=== PATIENT | female | born 1950 | race Caucasian/White ===

== ENCOUNTER 2018-07-30 16:18 | Inpatient (IN) ==
[2018-07-30] MEDS ORDERED: NS 1,000 ML IV ONE ×2 (16:40→17:53)
[2018-07-30] MEDS ORDERED: DUONEB (A & A) INH ONE (16:41)
[2018-07-30] MEDS ORDERED: TYLENOL PO ONE (16:49)
[2018-07-30 17:07] LABS: ALLEN TEST NO; BE 3.8 mmoll (-3.0-3.0); BLOOD TYPE ARTERIAL; HCO3-(ACT) 27.8 mmoll (20.0-26.0); METHB 0.8 % (0.0-1.5); O2(CT) 20.5 mL/dL (15.0-23.0); O2HB 95.5 % (95.0-99.0); PO2(98.6) 150 mmHg (60-100); SAMPLE BLOOD; SAO2 97.6 % (95.0-100.0); THB 15.1 g/dL (11.5-17.4); pH(98.6) 7.38 (7.35-7.45)
[2018-07-30 17:09] LABS: MODALITY SIMPLE MASK
[2018-07-30 17:10] LABS: PCO2(98.6) 51 mmHg (35-45)
[2018-07-30 17:11] LABS: INR 0.89; PROTIME 12.8 Seconds (11.0-16.0)
[2018-07-30 17:12] LABS: PTT 29.5 Seconds (22.3-41.8)
[2018-07-30 17:13] LABS: BASO# 0.03 X1000 (0.0-0.2); BASO% 0.2 % (0.0-0.8); HEMATOCRIT 47.2 % (37.0-47.0); IMM GRAN# 0.03 X1000 (0.0-0.04); IMM GRAN% 0.2 % (0.0-0.5); LYMPH# 0.54 X1000 (1.2-3.4); LYMPH% 3.5 % (20.5-51.1); MCH 29.1 PG (27-31); MCHC 31.8 g/dL (33-37); MCV 91.5 FL (81-99); MONO# 1.22 X1000 (0.11-0.59); MONO% 7.8 % (1.7-9.3); MPV 10.4 FL (7.4-10.4); NEUT# 13.78 X1000 (1.4-6.5); NEUT% 88.3 % (42.2-75.2); PLT 229 X1000 (130-400); RBC 5.16 XMIL (4.2-5.4); RDW 13.7 % (11.5-14.5)
[2018-07-30 17:22] LABS: AGAP 12; ALB/GLOB RATIO 1.7; ALBUMIN 4.2 g/dL (3.5-5.0); ALKALINE PHOSPHATASE 77 U/L (32-104); BUN 13 mg/dL (8-22); CALCIUM 8.5 mg/dL (8.8-10.2); CHLORIDE 94 mmol/L (98-107); CK PROFILE 25 U/L (24-173); COSMO 275; CREATININE 0.8 mg/dL (0.5-0.9); ESTIMATED GFR > 60; GLUCOSE 125 mg/dL (70-104); GOT 18 U/L (10-30); GPT 16 U/L (10-36); MAGNESIUM 1.6 mg/dL (1.5-2.7); POTASSIUM 4.5 mmol/L (3.5-5.1); SODIUM 137 mmol/L (136-145); TCO2 31 mmol/L (25-35); TOTAL BILIRUBIN 1.02 mg/dL (0.20-1.00); TOTAL PROTEIN 6.7 g/dL (6.3-8.3)
--- NOTE | 2018-07-30 17:23 | Diag Imaging Result Doc PS360 ---
EXAM: CHEST-PORTABLE HISTORY: SOB/sepsis/PN TECHNIQUE: Portable chest COMPARISON: 07/15/2018 FINDINGS: The lungs are hyperexpanded. The heart is not enlarged. The vessels are small. There are mild increased markings in the left lung base. No effusion identified. IMPRESSION: 1.Severe emphysema 2.Left basilar infiltrates Electronically signed by Ozzie Benites 07/30/2018 5:22 PM
[2018-07-30] MEDS ORDERED: LEVAQUIN 750 MG/D5W 750 MG/150 ML IVPB IV ONE (17:41)
[2018-07-30 17:48] LABS: BANDS 4 % (0-1); LYMPHS 4 % (21-51); MONO 5 % (1-9); SEGS 87 % (42-75)
[2018-07-30 19:15] LABS: URINE SOURCE CLEAN CATCH
[2018-07-30 19:22] LABS: BILIRUBIN URINE NEGATIVE (NEGATIVE); BLOOD URINE NEGATIVE (NEGATIVE); COLOR YELLOW; GLUCOSE URINE NEGATIVE (NEGATIVE); KETONE URINE TRACE mg/dL (NEGATIVE); LEUKOCYTES URINE NEGATIVE (NEGATIVE); NITRITE URINE NEGATIVE (NEGATIVE); PH URINE 6.5; PROTEIN URINE TRACE mg/dL (NEGATIVE); SP GRAVITY URINE 1.021; TURBIDITY URINE CLEAR (CLEAR); UROBILINOGEN URINE 6 mg/dL (NORMAL)
[2018-07-30 19:25] LABS: UR EPITHELIAL CELLS <10 /HPF (<10); URINE BACTERIA NEGATIVE /HPF; URINE RBC <10 /HPF (<10); URINE WBC <10 /HPF (<10)
[2018-07-30] MEDS ORDERED: ZITHROMAX 500 MG/NS 500 MG/250 ML IVPB IV ONE (19:52)
[2018-07-30] MEDS ORDERED: ZOFRAN IV ONE (20:11)
--- NOTE | 2018-07-30 21:33 | HISTORY AND PHYSICAL ---
PRIMARY CARE PHYSICIAN: Dr. Tasha Hairston. HEMMER CHAINSTITCH: Dr. Ap Mi. REASON FOR ADMISSION: Worsening shortness of breath over the last 1 week and pleuritic chest pain today. HISTORY OF PRESENT ILLNESS: Ms. Niki Jean-Baptiste is a 67-year-old lady with a past medical history of breast cancer status post lumpectomy and radiation therapy. She also has a history of COPD. She says for the last 1 month she has been "battling" a chest and upper respiratory infection. Last time she saw a physician for this was just over a week ago because she noticed that her breathing was getting progressively worse. She was given Augmentin and prednisone and states that while she was on the medication she felt better, but once she stopped the medication about 3 days ago, her symptoms have returned and gotten worse. Today she comes in with left pleuritic chest pain and decreased appetite, prompting her to seek care in our facility today. She denies any fever or chills, although when she arrived to the hospital she did have a temperature of close to 100. She has had a longstanding history of a cough productive of greenish sputum and associated postnasal drip for the last 1 month. Denies any leg swelling, PND or orthopnea. States that she has been having nausea and decreased appetite also for the last couple of days. No dysgeusia. No sore throat or swallowing problems. No GI or complaints. No focal neurological complaints. REVIEW OF SYSTEMS: Twelve systems were reviewed with no positive finding except as per HPI. ALLERGIES: None. MEDICATIONS: She is on: 1. Astelin nasal spray 2 puffs b.i.d. 2. Prempro 1 daily. 3. Ekaterina. 4. Pseudoephedrine 12-hour b.i.d. 5. Fluticasone. 6. Anoro inhaler once daily. 7. Vitamin tablet once daily. 8. Calcium carbonate with vitamin D 2 tablets daily. FAMILY HISTORY: Negative for any heart disease, diabetes or cancer in first- degree relatives. SOCIAL HISTORY: Does not smoke or use illicit drugs. Drinks a beer or two a month. . Lives with . LAB WORK: Chest film shows bilateral basilar infiltrates. White count is 15,000, hemoglobin 15.7, platelets 229, 88% neutrophils. Glucose is 125, magnesium 1.6, troponin negative. Lactate is 1.0. PTT is normal. Urinalysis is grossly normal with trace protein and trace ketones. Blood gas: pH of 7.38, pCO2 51, pO2 150. This is on a simple Ventimask. EKG was ordered but has not yet been viewed. PHYSICAL EXAMINATION: VITAL SIGNS: Blood pressure 97/45, heart rate 98, respirations 20, temperature 98 degrees. She is 98% on 3 liters. GENERAL: She is a thin, borderline emaciated, middle-aged woman who is in no obvious acute distress, alert and oriented x3. Normal mood and affect. HEENT: Head is normocephalic, atraumatic. Eyes PERRL, EOMI. She is anicteric but pale. ENT: Oropharynx exam is grossly negative for any exudates or erythema. No central cyanosis noted. NECK: Supple. No JVD, carotid bruits or thyromegaly. No lymphadenopathy. CHEST: Significantly decreased air entry in both lung haque. No wheezes or crepitations. CARDIOVASCULAR: First and second heart sounds are distant. No gallops, murmurs or rubs. Rhythm is regular. ABDOMEN: Scaphoid and soft without tenderness or megaly. Bowel sounds are normal. RECTAL: Exam not done at this time. EXTREMITIES: The patient has good distal volume pulses in all extremities. They are symmetrical and regular. No edema,clubbing or cyanosis. NEUROLOGIC: No tremors. No focal deficits. SKIN: Intact. No breakdown, lesions or erythema. MUSCULOSKELETAL: No overt joint deformities, but the patient does have moderate to severe sarcopenia. ASSESSMENT: 1. Bilateral pneumonia. 2. Chronic obstructive pulmonary disease exacerbation. 3. Chronic respiratory failure secondary to chronic obstructive pulmonary disease exacerbation. PLAN: At this time the patient has already been exposed to p.o. antibiotics with moderate improvement. We will start the patient on Levaquin, i.e., an alternative antibiotic. My only concern for this patient is that she may have a Pseudomonal infection, and thus my rationale for Levaquin, and will add on a 4th-generation cephalosporin for this reason too. Moderate dose of steroids and short-acting bronchodilators will be initiated. The patient will need to be evaluated for home O2 prior to discharge. Postnasal drip will be addressed by giving the patient adjuvant nasal sprays. The patient denies any allergy-type symptoms, however. cc: MD Tasha Arellano MD MTDD
[2018-07-30] MEDS ORDERED: PREDNISONE PO ONE (22:27)
[2018-07-30] MEDS: DUONEB (A & A) INH SCH (22:27)
[2018-07-30] MEDS ORDERED: NORCO-7.5 PO PRN (22:27)
[2018-07-30] MEDS ORDERED: ZOFRAN IV PRN (22:27)
[2018-07-30] MEDS ORDERED: TYLENOL PO PRN (22:27)
[2018-07-30] MEDS: MAXIPIME 1 GM in NS 50 ML IV SCH (23:30)
[2018-07-31] MEDS: LOVENOX SUBQ SCH ×2 (00:02→22:19)
[2018-07-31] MEDS: CULTURELLE PO SCH ×3 (00:03→22:20)
[2018-07-31] MEDS: PREDNISONE PO SCH ×2 (00:25→09:09)
[2018-07-31] MEDS: ATROVENT 0.03% NASAL SPRAY NAS SCH ×3 (00:37→22:20)
[2018-07-31] MEDS: DUONEB (A & A) INH SCH ×4 (03:35→21:05)
[2018-07-31 06:49] LABS: AGAP 11; ALB/GLOB RATIO 1.2; ALBUMIN 3.3 g/dL (3.5-5.0); ALKALINE PHOSPHATASE 61 U/L (32-104); BUN 11 mg/dL (8-22); CALCIUM 7.6 mg/dL (8.8-10.2); CHLORIDE 102 mmol/L (98-107); COSMO 280; CREATININE 0.6 mg/dL (0.5-0.9); ESTIMATED GFR > 60; GLUCOSE 125 mg/dL (70-104); GOT 15 U/L (10-30); GPT 13 U/L (10-36); POTASSIUM 4.2 mmol/L (3.5-5.1); SODIUM 140 mmol/L (136-145); TCO2 27 mmol/L (25-35); TOTAL BILIRUBIN 0.79 mg/dL (0.20-1.00)
[2018-07-31 07:00] LABS: BASO# 0.01 X1000 (0.0-0.2); BASO% 0.1 % (0.0-0.8); HEMATOCRIT 40.6 % (37.0-47.0); HEMOGLOBIN 12.6 g/dL (12.0-16.0); LYMPH# 0.23 X1000 (1.2-3.4); LYMPH% 2.1 % (20.5-51.1); MCV 93.5 FL (81-99); MONO# 0.43 X1000 (0.11-0.59); MPV 10.4 FL (7.4-10.4); NEUT# 10.15 X1000 (1.4-6.5); NEUT% 93.8 % (42.2-75.2); PLT 160 X1000 (130-400); RBC 4.34 XMIL (4.2-5.4); RDW 13.7 % (11.5-14.5); WBC 10.82 X1000 (4.8-10.8)
[2018-07-31 07:02] LABS: BANDS 20 % (0-1); LYMPHS 4 % (21-51); SEGS 74 % (42-75)
--- NOTE | 2018-07-31 07:26 | EKG Report ---
Test Performed on : 07/31/2018 06:59:19 AM Test Reason : R/O QT interval increase from meds Blood Pressure : / mmHG Vent. Rate : 096 BPM Atrial Rate : 096 BPM P-R Int : 128 ms QRS Dur : 074 ms QT Int : 364 ms P-R-T Axes : 083 039 076 degrees QTc Int : 459 ms Normal sinus rhythm. Normal ECG When compared with ECG of 14-JUL-2018 23:44, (Unconfirmed) ST no longer depressed in Anterior leads Artifact is now absent Confirmed by Jenny HOLT, Be Jain ([id number]) on 08/03/2018 7:15:53 AM
[2018-07-31] MEDS ORDERED: ULTRAM PO PRN (07:29)
--- NOTE | 2018-07-31 08:58 | Diag Imaging Result Doc PS360 ---
EXAM: CT THORAX W/O CONTRAST 07/31/2018 HISTORY: ? pneumonia TECHNIQUE: This exam was performed using automated exposure control, adjustment of mA or kV according to patient size, and/or use of iterative reconstruction technique. COMMENT: There is bullous emphysema present in both lungs particularly in the upper lung zones. There is opacification posteriorly in the left lower lobe which was not present at the time the previous study of 09/17/2012. There is a pleural-based nodule on image 104 which was present previously. There is some irregular opacity with nodularity present in the superior segment of the left lower lobe around image 73 through 75. This is somewhat worse than on the previous examination. The possibility of granulomatous disease is suggested. The largest nodule is less than 6 mm in diameter. There are some calcified atheromatous plaques in the aorta and also in the left anterior descending coronary artery. There is no evidence of significant adenopathy. There is a small amount of pleural fluid on the left. The regional skeleton is stable in appearance. IMPRESSION: Left lower lobe pneumonia. Follow-up study following clearing of the pneumonia is recommended. Electronically signed by Fortino Cisneros 07/31/2018 8:55 AM
[2018-07-31] MEDS: BROVANA NEB INH SCH ×2 (09:46→21:05)
[2018-07-31] MEDS: MAXIPIME 1 GM in NS 50 ML IV SCH ×2 (10:36→22:20)
--- NOTE | 2018-07-31 14:38 | PROGRESS NOTE ---
DATE: 07/31/2018 INTERVAL HISTORY: The patient still with some shortness of breath on minimal exertion, but overall improved from previous. Still with some largely nonproductive cough. No wheeze. One fever yesterday afternoon, but none since. Denies chills, nausea, vomiting, muscle aches, diarrhea. REVIEW OF SYSTEMS: A 12 point review of systems negative except as per interval history. LABS: WBC 10.8, hemoglobin 12.6, hematocrit 40, platelets 160,000. Glucose 125 , total protein 6, albumin 3.3. Complete metabolic panel otherwise unremarkable. Urinalysis unremarkable. IMAGING: CT chest showing left lower lobe pneumonia and severe bullous emphysema. VITALS: T-max 101.7 yesterday afternoon. No fever since. Pulse 95, respirations 18, blood pressure 102/49, O2 sat 100% on 3 L by nasal cannula. PHYSICAL EXAMINATION: General: No acute distress. Vitals: As above. HEENT: Normocephalic, atraumatic. Moist mucous membranes. No cervical adenopathy. Cardiovascular: Regular rate and rhythm. No murmurs, rubs or gallops. Pulmonary: Moderately decreased air entry throughout, but no wheezing, rales or rhonchi identified. No increased work of breathing. No accessory muscle use. Abdomen: Soft, nontender, nondistended. Bowel sounds positive. Extremities: Peripheral pulses intact. No clubbing, cyanosis or edema. Neurologic: Cranial nerves 2-12 grossly intact. No focal deficits identified. Psychiatric: Normal mood and affect. Awake, alert, oriented x 3. Skin: No new rashes or lesions identified. ASSESSMENT AND PLAN: 1. Left lower lobe pneumonia appears to be improving on Levaquin. Leukocytosis , improving. No further fever since yesterday afternoon. Blood cultures no growth to date and some symptomatic improvement. Continue Levaquin, wean oxygen as possible, and continue to monitor. 2. Chronic obstructive pulmonary disease. Some decreased air entry, but no wheezing. ABG with slightly elevated CO2, but normal pH suggesting chronic hypercapnic respiratory failure, but little to suggest significant COPD exacerbation at this time. We will continue on Duonebs as needed and prednisone for now. Can likely taper prednisone rapidly. Of note, patient's states that she follows with Dr. Mi and there has been some discussion of home O2 in the past, so she likely needs home O2 eval prior to discharge once she is somewhat improved. 3. Hyperglycemia, likely steroid-induced hyperglycemia. No significant elevations. Will monitor. 4. History of breast cancer. We will continue patient on maintenance therapy with her home letrozole. 5. DVT prophylaxis, Lovenox. [facility]
[2018-07-31] MEDS: LEVAQUIN 750 MG/D5W 750 MG/150 ML IVPB IV SCH (18:01)
[2018-07-31] MEDS ORDERED: NS 500 ML ONE (18:03)
[2018-07-31] MEDS: FEMARA PO SCH (22:21)
[2018-08-01] MEDS: DUONEB (A & A) INH SCH ×4 (03:05→19:10)
[2018-08-01 06:14] LABS: AGAP 6; BUN 12 mg/dL (8-22); CALCIUM 8.6 mg/dL (8.8-10.2); CHLORIDE 104 mmol/L (98-107); COSMO 282; CREATININE 0.7 mg/dL (0.5-0.9); ESTIMATED GFR > 60; GLUCOSE 119 mg/dL (70-104); POTASSIUM 4.1 mmol/L (3.5-5.1); SODIUM 141 mmol/L (136-145); TCO2 31 mmol/L (25-35)
[2018-08-01 06:29] LABS: BASO# 0.01 X1000 (0.0-0.2); BASO% 0.1 % (0.0-0.8); HEMATOCRIT 36.8 % (37.0-47.0); HEMOGLOBIN 11.2 g/dL (12.0-16.0); IMM GRAN# 0.02 X1000 (0.0-0.04); IMM GRAN% 0.2 % (0.0-0.5); LYMPH# 0.54 X1000 (1.2-3.4); MCH 28.6 PG (27-31); MCHC 30.4 g/dL (33-37); MCV 93.9 FL (81-99); MONO# 1.02 X1000 (0.11-0.59); MONO% 9.4 % (1.7-9.3); MPV 10.4 FL (7.4-10.4); NEUT# 9.21 X1000 (1.4-6.5); NEUT% 85.3 % (42.2-75.2); PLT 167 X1000 (130-400); RBC 3.92 XMIL (4.2-5.4); RDW 13.4 % (11.5-14.5)
[2018-08-01] MEDS ORDERED: BROVANA NEB ONE (07:31)
--- NOTE | 2018-08-01 07:36 | PULMONOLOGY CONSULTATION ---
DATE: 07/31/2018 REQUESTING PHYSICIAN: Dr. Paidlla. REASON FOR CONSULTATION: Pneumonia and respiratory failure. HISTORY OF PRESENT ILLNESS: Ms. Jean-Baptiste is a 67-year-old, white female with a prior tobacco history and severe COPD who is followed in my clinic. The patient has previously qualified for home oxygen but has refused to obtain and utilize oxygen therapy. The patient reports she developed a sinus infection around and it persisted through . She did receive some Augmentin along with steroids at an outpatient clinic. She has been reluctant to use Levaquin due to nausea. She continued to have symptoms with increased cough and purulent sputum production, and developed pleuritic chest pain with a low-grade fever. The patient presented to the emergency room. She had an oxygen saturation of 81% on arrival. She underwent a CT scan of the thorax which revealed a left lower lobe pneumonia with extensive emphysematous changes. She has been initiated on Levaquin and has had some clinical improvement. She has recently expectorated some sputum and it is in a cup on her bedside table. PAST MEDICAL HISTORY: 1. Severe COPD. Pulmonary functions on 01/06/2018 revealed an FEV1 of 0.49 L or 21% of predicted and a diffusion capacity of 32% of predicted. 2. Invasive carcinoma of the right breast, status post resection in December of this year. 3. Allergic rhinitis. SOCIAL HISTORY: Prior tobacco use but none recently. She drinks an occasional alcoholic beverage. FAMILY HISTORY: Positive for alcohol abuse, coronary artery disease, dyslipidemia, and unspecified lung conditions in her brother. REVIEW OF SYSTEMS: As noted in the HPI but is otherwise negative. PHYSICAL EXAMINATION: General: Reveals a thin white female resting comfortably and in no distress. Vital Signs: Maximum temperature during this hospitalization was 101.7 degrees. Blood pressure 130/94, heart rate 116, respiratory rate 20, oxygen saturation 99% on 3 L per nasal cannula. HEENT: Pupils are equal and reactive. Oropharynx is clear. Neck: Supple. Chest: Reveals diminished breath sounds, left base. Cardiac Examination: S1-S2. Abdomen: Soft and without hepatosplenomegaly. Extremities: Without edema. Neurologic: Cranial nerves 2-12 are grossly intact. IMPRESSION: A 67-year-old with severe chronic obstructive pulmonary disease, acute hypoxemic respiratory failure, chronic hypercapnic respiratory failure with a pCO2 in the 50s, left lower lobe pneumonia, with pleurisy. RECOMMENDATIONS: 1. Continue current antibiotics, given clinical improvement. 2. Await sputum culture results to narrow antibiotics if possible. 3. Continue bronchodilators. 4. Continue incentive spirometry. 5. Evaluate for oxygen at the time of discharge but she has been noncompliant with oxygen therapy in the past. cc: Ap Mi MD
[2018-08-01] MEDS: PREDNISONE PO SCH (08:10)
[2018-08-01] MEDS: CULTURELLE PO SCH ×2 (08:10→21:23)
[2018-08-01] MEDS: FEMARA PO SCH (08:11)
[2018-08-01] MEDS: BROVANA NEB INH SCH ×2 (09:55→19:10)
[2018-08-01] MEDS: ATROVENT 0.03% NASAL SPRAY NAS SCH (11:33)
[2018-08-01] MEDS: MAXIPIME 1 GM in NS 50 ML IV SCH (11:43)
[2018-08-01] MEDS ORDERED: EFFEXOR XR PO SCH (21:00)
[2018-08-01] MEDS: LEVAQUIN 750 MG/D5W 750 MG/150 ML IVPB IV SCH (21:22)
[2018-08-01] MEDS: LOVENOX SUBQ SCH (21:23)
[2018-08-02] MEDS: MAXIPIME 1 GM in NS 50 ML IV SCH ×2 (00:57→11:05)
[2018-08-02] MEDS: DUONEB (A & A) INH SCH ×3 (03:10→16:35)
[2018-08-02] MEDS: LOVENOX SUBQ SCH (03:40)
--- NOTE | 2018-08-02 05:10 | PROGRESS NOTE ---
DATE: 08/01/2018 SUBJECTIVE: She is breathing a bit better. OBJECTIVE: Vital Signs: Vital signs are stable. I think she is afebrile. She is still on about 3 L of oxygen. Blood pressure is 96/46, heart rate 105, respiratory rate of 15, and temperature 97.9 degrees and 93% on 3 L. Cardiovascular: Regular rate and rhythm. Pulmonary: Bilateral breath sounds. Clear to auscultation. GI: Soft, nontender, and nondistended. Bowel sounds are positive. LABORATORY DATA: White count is 10. Hemoglobin and hematocrit 11 and 36, platelets of 167,000. Basic was normal. PROBLEM LIST: 1. Chronic obstructive pulmonary disease exacerbation, acute. I think she is doing better. I am going to knock down her steroids just a hair here. Continue breathing treatments. 2. Pneumonia. She seems to be doing better. She is on cefepime and Levaquin, and white count is stabilizing. Anticipate possible discharge soon from that perspective however. 3. Hyperglycemia, but her sugars have been fairly stable. 4. Hypoxia. She may need home O2, but apparently she is qualified and has not continued with it. She has stopped smoking so that is at least a marked improvement. cc: Vikas Rao MD
[2018-08-02 06:39] LABS: BASO# 0.01 X1000 (0.0-0.2); BASO% 0.1 % (0.0-0.8); EOS# 0.05 X1000 (0.0-0.7); EOS% 0.5 % (0.0-10.0); HEMATOCRIT 36.4 % (37.0-47.0); HEMOGLOBIN 11.1 g/dL (12.0-16.0); IMM GRAN# 0.02 X1000 (0.0-0.04); IMM GRAN% 0.2 % (0.0-0.5); LYMPH# 0.89 X1000 (1.2-3.4); LYMPH% 9.4 % (20.5-51.1); MCH 29.1 PG (27-31); MCHC 30.5 g/dL (33-37); MCV 95.3 FL (81-99); MONO# 0.75 X1000 (0.11-0.59); MONO% 7.9 % (1.7-9.3); MPV 10.1 FL (7.4-10.4); NEUT# 7.74 X1000 (1.4-6.5); NEUT% 81.9 % (42.2-75.2); PLT 191 X1000 (130-400); RBC 3.82 XMIL (4.2-5.4); RDW 13.7 % (11.5-14.5); WBC 9.46 X1000 (4.8-10.8)
[2018-08-02 07:20] LABS: AGAP 8; BUN 14 mg/dL (8-22); CALCIUM 8.4 mg/dL (8.8-10.2); CHLORIDE 103 mmol/L (98-107); COSMO 285; CREATININE 0.7 mg/dL (0.5-0.9); ESTIMATED GFR > 60; GLUCOSE 88 mg/dL (70-104); SODIUM 143 mmol/L (136-145); TCO2 32 mmol/L (25-35)
--- NOTE | 2018-08-02 07:34 | PULMONOLOGY PROGRESS NOTE ---
DATE: 08/01/2018 SUBJECTIVE: The patient is awake alert and conversant. She reports her pleurisy has diminished. Sputum production also is decreasing. OBJECTIVE: The patient has been afebrile for the last 24 hours. Blood pressure 96/46, heart rate 105, respiratory rate 15, oxygen saturation 98% on 3 L per nasal cannula.HEENT: Pupils are equal and reactive. Oropharynx is clear. Neck: Supple. Chest: Reveals crackles at the left base without definite E to A changes. Cardiac: S1-S2. Abdomen: Soft. No hepatosplenomegaly. Extremities: Without edema. LABORATORIES: White blood count 10.80, hemoglobin 11.2, platelet count 167,000, chemistry sodium 141, potassium 4.1, chloride 104, bicarbonate 31, BUN 12, creatinine 0.7. IMPRESSION: A 67-year-old with severe COPD, chronic hypoxemic respiratory failure who presented with acute hypoxemic respiratory failure. She has community-acquired pneumonia and fevers. Clinically, she is improving. The patient also presented with pleurisy which is resolving. RECOMMENDATION: 1. Continue current antibiotics. 2. Continue bronchodilators. 3. Continue incentive spirometry. 4. Two-view chest x-ray tomorrow. Hopefully she will continue to improve and can be discharged in the next 24 to 48 hours. cc: Ap Mi MD
--- NOTE | 2018-08-02 07:51 | Diag Imaging Result Doc PS360 ---
CHEST-2 VIEWS - 08/02/2018 INDICATION: abnormal exam COMPARISON: 07/30/2018 FINDINGS: Stable severe COPD. Heart size and pulmonary vascularity is normal. Stable left lower lobe infiltrate. Stable small left pleural effusion. IMPRESSION: Left lower lobe infiltrate and small pleural effusion, grossly stable from prior. Severe COPD. Electronically signed by Robert Nicole 08/02/2018 7:49 AM
[2018-08-02] MEDS ORDERED: PREDNISONE PO SCH (09:00)
[2018-08-02] MEDS: ATROVENT 0.03% NASAL SPRAY NAS SCH (09:05)
[2018-08-02] MEDS: FEMARA PO SCH (09:05)
[2018-08-02] MEDS: CULTURELLE PO SCH (09:07)
[2018-08-02] MEDS: BROVANA NEB INH SCH (10:27)
[2018-08-02] MEDS ORDERED: BROVANA NEB ONE (10:32)
[2018-08-02 20:00] VITALS: BP 130/59
--- NOTE | 2018-08-02 21:46 | PROVIDER DOCUMENTATION ---
This chart was entered by Eli Gifford Scribe, acting as scribe for Juana Whitfield MD. HPI-Respiratory General - General Source: patient, family - History of Present Illness-Resp Quality of Pain: reports: aching Severity in ED: reports: moderate Onset/Duration: reports: 1 week ago Timing: reports: still present, constant Exposure: reports: unknown cause Cough Quality/Degree: reports: moderate, productive cough Episode Frequency: chronic episodes Current Respiratory Medication Therapy: Initiated see nurses note Modifying Factors: worse with: exertion Associated Symptoms: reports: cough, heart racing, hyperventilating, muscle/ bodyaches, shortness of breath Similar Symptoms Previously?: Yes Recently seen or treated by another doctor?: Yes (was seen in ed last week) <Juana Whitfield - Last Filed: 07/30/18 18:01> - General Source: patient <Fredy Hong - Last Filed: 07/30/18 20:09> - General Chief Complaint: Shortness of Breath Stated Complaint: COPD/SHORTNESS OF BREATH Time Seen by Provider: 07/30/18 16:29 Allergies/Adverse Reactions: Patient Allergies Allergy/AdvReac Type Severity Reaction Status Date / Time No Known Allergies Allergy Verified 01/08/18 05:31 Home Medications: Home Medication List Medication Instructions Recorded Confirmed Last Taken Type Azelastine 137 Mcg Nasal [place] 2 spray IGGY BID 01/02/18 07/30/18 01/08/18 03:30 History [Astelin Nasal [place]] Calcium Carb/Vitamin D3/Vit K1 2 each PO DAILY 01/02/18 07/30/18 01/07/18 History [Viactiv Soft Chew] Estrogen,Con/M-Progest Acet 1 each PO DAILY 01/02/18 07/30/18 01/07/18 History [Prempro 0.45-1.5 mg Tablet] Fexofenadine/Pse E.r. 12 Hr 1 each PO DAILY 01/02/18 07/30/18 01/07/18 History [Ekaterina-D 12 Hour] Fluticasone/Umeclidin/Vilanter 1 each IH DAILY 01/02/18 07/30/18 01/08/18 03:30 History [Trelegy Ellipta 100-62.5-25] Multivit-Min/FA/Lycopen/Lutein 1 each PO DAILY 01/02/18 07/30/18 01/07/18 History [Centrum Silver Tablet] Hydrocodone/Acetaminophen [[place] 1 each PO Q6H PRN PRN #10 tablet 01/08/1807/30 Unknown Rx 7.5-325 Tablet] Amoxicillin/Pot Clavulanate 875 mg PO Q12HR #14 tablet 07/15/18 07/30/18 Unknown Rx [Augmentin] Amoxicillin/Pot Clavulanate 875 mg PO Q12HR #20 tab 07/15/18 07/30/18 Unknown Rx [Augmentin] Brompheniramine/Pseudoephed/Dm 5 ml PO Q4-6H PRN PRN 7 Days #120 07/15/18 Unknown Rx [Bromfed Dm Cough Syrup] syrup NS Brompheniramine/Pseudoephed/Dm 5 ml PO Q4-6H PRN PRN 7 Days #120 07/15/18 Unknown Rx [Bromfed Dm Cough Syrup] syrup NS Prednisone 20 mg PO DAILY 6 Days #6 tab 07/15/18 07/30/18 Unknown Rx Prednisone 20 mg PO DAILY 6 Days #6 tab 07/15/18 07/30/18 Unknown Rx - History of Present Illness-Resp Nature of Presenting Problem: 67 yof presents to the ed with sob with hx of copd. pt is thin and ill appearing on exam had bodyaches, decreased appetite, productive cough with fatigue (Eli Gifford) 67 yof presents to the ed with sob with hx of copd. pt is thin and ill appearing on exam had bodyaches, decreased appetite, productive cough with fatigue (Juana Whitfield) Review of Systems - Adult - REVIEW OF SYSTEMS - ADULT ROS:: ROS per family Constitutional: reports: see HPI, chills, fever (101.7), fatique, weight loss Eyes: denies: blurred vision, double vision Ears, Nose, Mouth & Throat: reports: no symptoms reported Cardiovascular: denies: chest pain, palpitations Respiratory: reports: see HPI, cough, excessive sputum production, shortness of breath. denies: wheezing Gastrointestinal: reports: see HPI, poor appetite. denies: abdominal pain, diarrhea, nausea, vomiting Genitourinary: reports: no symptoms reported Musculoskeletal: reports: see HPI, muscle aches, muscle weakness Integumentary: reports: no symptoms reported Neurological: denies: dizziness/vertigo, headache/migraines Psychiatric: reports: no symptoms reported Endocrine: reports: no symptoms reported Hematologic/Lymphatic: reports: no symptoms reported Allergic/Immunologic: reports: no symptoms reported All Other Systems: Reviewed and Negative <Juana Whitfield - Last Filed: 07/30/18 18:01> - REVIEW OF SYSTEMS - ADULT Constitutional: reports: see HPI, chills <Fredy Hong - Last Filed: 07/30/18 20:09> Past History - Adult - PAST MEDICAL HISTORY-ADULT Review of Records: reports: Old Records Reviewed, Nursing Assessment Review, Medications Reviewed, Social history reviewed & non-contributory. Major Childhood Illnesses: reports: denies history Cardiovascular: reports: denies history Respiratory: reports: COPD Gastrointestinal: reports: denies history Obstetrical/Gynecological: reports: denies history Genitourinary: reports: denies history Musculoskeletal: reports: denies history Neurological: reports: denies history Endocrine/Immune: reports: denies history Other Conditions: reports: other cancer (rt breast cancer stage 1) - PRIOR SURGERIES/PROCEDURES Surgical/Procedure History: reports: none - IMMUNIZATION STATUS Childhood Immunizations: See Nurse Assessment Flu Vaccine: See Nurse Assessment - FAMILY HISTORY Family History: reviewed, not pertinent - SOCIAL HISTORY Smoking: quit greater than 1 year Substance Use: denies Alcohol Use Frequency: never Living Situation: family <Juana Whitfield - Last Filed: 07/30/18 18:01> - PAST MEDICAL HISTORY-ADULT Review of Records: reports: Nursing Assessment Review, Medications Reviewed, Social history reviewed & non-contributory. <Fredy Hong - Last Filed: 07/30/18 20:09> Physical Exam-General - PHYSICAL EXAM-ADULT Initial Vital Signs Reviewed: Yes - CONSTITUTIONAL General Appearance: alert, moderate distress, cachetic, thin. negative: appears well - EYES Eyes: PERRL/EOMI, pale conjunctivae, sunken eyes - HEAD, EARS, NOSE, MOUTH & THROAT HENMT: negative: moist mucous membranes - NECK Neck: normal inspection - RESPIRATORY Respiratory: chest non-tender, respiratory distress (81% on RA), crackles, increased rate (26) - CARDIOVASCULAR Cardiovascular: normal peripheral pulses, tachycardia (131) - CHEST (BREASTS) Chest/Breast: deferred - GASTROINTESTINAL (ABDOMEN) Abdominal Exam: normal bowel sounds, soft. negative: distended, guarding, rigid , rebound - GENITOURINARY Female Genitalia/Pelvic Exam: deferred Rectal Exam: deferred Hemoccult Exam: deferred - LYMPHATIC Lymphatic: no adenopathy - MUSCULOSKELETAL Back Exam: normal inspection Extremity: no pedal edema, no calf tenderness, pelvis stable, other (thin) - SKIN Integumentary: warm/dry, pallor. negative: normal turgor - NEUROLOGIC Neurologic: grossly normal - PSYCHIATRIC Psych/Mental Status: normal mood/affect, normal thought content, normal thought process, oriented x 3 <Juana Whitfield - Last Filed: 07/30/18 18:01> - PHYSICAL EXAM-ADULT Initial Vital Signs Reviewed: Yes - CONSTITUTIONAL General Appearance: alert <Fredy Hong - Last Filed: 07/30/18 20:09> Progress - PLAN OF CARE/RESULTS Result Diagrams: 07/30/18 16:40 07/30/18 16:40 - REASSESSMENT Reassessment #1 Time Reassessed: 16:46 Status: improving (PATIENT RESPONDED WELL TO 1L NS WITH HR NOW DOWN TO LOW 110S. RR IMPORVING WELL. CXR REVEALING INFILTRATION IN SETTING OF FEVER WHICH I WILL TREAT WAS PNA WITH LEVAQUINE 750MG IV NOW. I WILL ALSO ORDER ANOTHER 1L NS. PATIENT'S CURB-65 IS ONLY POSITIVE FOR AGE (>65). I HAVE SIGNED OUT PATIENT CARE TO MY COLLEAGEU WHO WILL CONTINUE WITH PATIENT CARE AND REEVALUTE AFTER 2ND LITER OF NS AND LEVAQUIN 750MG.) - XRAY 1 XRAY: Bilateral XRAY Study: Chest (EXAM: CHEST-PORTABLE HISTORY: SOB/sepsis/PN TECHNIQUE: Portable chest COMPARISON: 07/15/2018 FINDINGS: The lungs are hyperexpanded. The heart is not enlarged. The vessels are small. There are mild increased markings in the left lung base. No effusion identified. IMPRESSION: 1.Severe emphysema 2.Left basilar infiltrates Electronically signed by Ozzie Benites 07/30/2018 5:22 PM 07/30/18 1722 Interpreting Physician: Ozzie Benites MD Dictated Date/Time: 07/30/18 1261 cc: Juana Whitfield MD; LEWIS THOA) - CHANGE OF SHIFT REPORT (ED Provider) Report Given and Care Transferred to:: Rafael Hong Time of Transfer: 18:02 Items Pending: Other <Juana Whitfield - Last Filed: 07/30/18 18:01> - PLAN OF CARE/RESULTS Result Diagrams: 07/30/18 16:40 07/30/18 16:40 - CONSULTS/PCP/HOSPITALIST Notification #1 *Consult/PCP/Hospitalist*: Dr. Grimes Time Discussed: 20:09 Reason/Comments: Admission Consult Disposition: Will see in ED, Admit - CHANGE OF SHIFT REPORT (ED Provider) Report Given and Care Transferred to:: SANDY Burdick <Fredy Hong - Last Filed: 07/30/18 20:09> - PLAN OF CARE/RESULTS Progress/Plan/Lab Results: Vital Signs - 8 hr 07/30/18 16:22 07/30/18 16:38 07/30/18 16:40 Temperature 101.7 F H Pulse Rate 131 H 123 H 120 H Respiratory Rate 26 H 28 H 23 Blood Pressure 124/64 122/83 O2 Sat by Pulse Oximetry 81 L 97 97 07/30/18 16:50 07/30/18 17:00 07/30/18 17:05 Temperature Pulse Rate 120 H 113 H 123 H Respiratory Rate 25 H 24 33 H Blood Pressure 129/48 O2 Sat by Pulse Oximetry 97 97 99 07/30/18 17:10 07/30/18 17:20 07/30/18 17:30 Temperature Pulse Rate 119 H 114 H 110 H Respiratory Rate 25 H 26 H 24 Blood Pressure O2 Sat by Pulse Oximetry 98 100 100 07/30/18 17:40 07/30/18 17:50 07/30/18 18:00 Temperature Pulse Rate 108 H 113 H 109 H Respiratory Rate 25 H 24 23 Blood Pressure O2 Sat by Pulse Oximetry 98 95 92 L 07/30/18 18:02 07/30/18 18:10 07/30/18 18:20 Temperature Pulse Rate 112 H 108 H 112 H Respiratory Rate 30 H 13 15 Blood Pressure 106/60 O2 Sat by Pulse Oximetry 91 L 93 L 89 L 07/30/18 18:30 07/30/18 18:32 07/30/18 18:40 Temperature 98.0 F Pulse Rate 109 H 106 H 112 H Respiratory Rate 23 24 18 Blood Pressure 106/60 92/67 O2 Sat by Pulse Oximetry 95 96 97 07/30/18 18:50 07/30/18 19:00 07/30/18 19:02 Temperature Pulse Rate 108 H 110 H 109 H Respiratory Rate 22 23 24 Blood Pressure 95/40 O2 Sat by Pulse Oximetry 98 98 98 07/30/18 19:11 07/30/18 19:20 07/30/18 19:30 Temperature Pulse Rate 110 H 109 H 103 H Respiratory Rate 22 22 18 Blood Pressure O2 Sat by Pulse Oximetry 92 L 97 98 07/30/18 19:40 07/30/18 19:50 07/30/18 19:54 Temperature Pulse Rate 102 H 100 H 98 H Respiratory Rate 18 20 20 Blood Pressure 97/45 O2 Sat by Pulse Oximetry 98 98 99 07/30/18 20:00 Temperature Pulse Rate 97 H Respiratory Rate 20 Blood Pressure O2 Sat by Pulse Oximetry 99 07/30/18 17:43 Influenza Screen - Final Nasopharyngeal Laboratory Results - last 24 hr 07/30/18 07/30/18 07/30/18 16:40 16:40 16:40 WBC 15.60 H RBC 5.16 Hgb 15.0 Hct 47.2 H MCV 91.5 MCH 29.1 MCHC 31.8 L RDW Std Deviation 13.7 Plt Count 229 MPV 10.4 Immature Gran % (Auto) 0.2 Neut % (Auto) 88.3 H Lymph % (Auto) 3.5 L [place] % (Auto) 7.8 Eos % (Auto) 0.0 Baso % (Auto) 0.2 Immature Gran # (Auto) 0.03 Neut # (Auto) 13.78 H Lymph # (Auto) 0.54 L [place] # (Auto) 1.22 H Eos # (Auto) 0.00 Baso # (Auto) 0.03 Segmented Neutrophils 87 H Band Neutrophils 4 H Lymphocytes 4 L Monocytes 5 PT 12.8 INR 0.89 PTT (Actin FS) 29.5 Specimen Type Sample Site pH pCO2 pO2 HCO3 Base Excess Oxyhemoglobin ABG O2 Sat (Calculated) ABG O2 Saturation ABG Carboxyhemoglobin ABG Methemoglobin Hal Test A-a O2 Difference Total Hemoglobin Lactate Liter Flow Blood Gas Modality FiO2 % Sodium 137 Potassium 4.5 Chloride 94 L Carbon Dioxide 31 Anion Gap 12 BUN 13 Creatinine 0.8 Estimated GFR/1.73 m2 > 60 BUN/Creatinine Ratio 16 Glucose 125 H Calculated Osmolality 275 Calcium 8.5 L Magnesium 1.6 Total Bilirubin 1.02 H AST 18 ALT 16 Alkaline Phosphatase 77 Creatine Kinase 25 Troponin T Total Protein 6.7 Albumin 4.2 Globulin 2.5 Albumin/Globulin Ratio 1.7 Plasma Lactate Urine Source Urine Color Urine Turbidity Urine pH Ur Specific [place] Urine Protein Ur Glucose (Stick) Ur Ketones (Stick) Urine Blood Urine Nitrite Urine Bilirubin Urobilinogen Dipstick Urine Leukocytes Urine WBC (Auto) Urine RBC (Auto) U Epithel Cells (Auto) Urine Bacteria (Auto) 07/30/18 07/30/18 07/30/18 16:40 16:40 17:00 WBC RBC Hgb Hct MCV MCH MCHC RDW Std Deviation Plt Count MPV Immature Gran % (Auto) Neut % (Auto) Lymph % (Auto) [place] % (Auto) Eos % (Auto) Baso % (Auto) Immature Gran # (Auto) Neut # (Auto) Lymph # (Auto) [place] # (Auto) Eos # (Auto) Baso # (Auto) Segmented Neutrophils Band Neutrophils Lymphocytes Monocytes PT INR PTT (Actin FS) Specimen Type ARTERIAL Sample Site R BRACHIAL pH 7.38 pCO2 51 H* pO2 150 H HCO3 27.8 H Base Excess 3.8 H Oxyhemoglobin 95.5 ABG O2 Sat (Calculated) 20.5 ABG O2 Saturation 97.6 ABG Carboxyhemoglobin 1.40 ABG Methemoglobin 0.8 Hal Test NO A-a O2 Difference 71.0 Total Hemoglobin 15.1 Lactate 0.80 Liter Flow 6.0 Blood Gas Modality SIMPLE MASK FiO2 % 40.0 Sodium Potassium Chloride Carbon Dioxide Anion Gap BUN Creatinine Estimated GFR/1.73 m2 BUN/Creatinine Ratio Glucose Calculated Osmolality Calcium Magnesium Total Bilirubin AST ALT Alkaline Phosphatase Creatine Kinase Troponin T < 0.010 Total Protein Albumin Globulin Albumin/Globulin Ratio Plasma Lactate 1.1 Urine Source Urine Color Urine Turbidity Urine pH Ur Specific [place] Urine Protein Ur Glucose (Stick) Ur Ketones (Stick) Urine Blood Urine Nitrite Urine Bilirubin Urobilinogen Dipstick Urine Leukocytes Urine WBC (Auto) Urine RBC (Auto) U Epithel Cells (Auto) Urine Bacteria (Auto) 07/30/18 18:06 WBC RBC Hgb Hct MCV MCH MCHC RDW Std Deviation Plt Count MPV Immature Gran % (Auto) Neut % (Auto) Lymph % (Auto) [place] % (Auto) Eos % (Auto) Baso % (Auto) Immature Gran # (Auto) Neut # (Auto) Lymph # (Auto) [place] # (Auto) Eos # (Auto) Baso # (Auto) Segmented Neutrophils Band Neutrophils Lymphocytes Monocytes PT INR PTT (Actin FS) Specimen Type Sample Site pH pCO2 pO2 HCO3 Base Excess Oxyhemoglobin ABG O2 Sat (Calculated) ABG O2 Saturation ABG Carboxyhemoglobin ABG Methemoglobin Hal Test A-a O2 Difference Total Hemoglobin Lactate Liter Flow Blood Gas Modality FiO2 % Sodium Potassium Chloride Carbon Dioxide Anion Gap BUN Creatinine Estimated GFR/1.73 m2 BUN/Creatinine Ratio Glucose Calculated Osmolality Calcium Magnesium Total Bilirubin AST ALT Alkaline Phosphatase Creatine Kinase Troponin T Total Protein Albumin Globulin Albumin/Globulin Ratio Plasma Lactate Urine Source CLEAN CATCH Urine Color YELLOW Urine Turbidity CLEAR Urine pH 6.5 Ur Specific [place] 1.021 Urine Protein TRACE A Ur Glucose (Stick) NEGATIVE Ur Ketones (Stick) TRACE A Urine Blood NEGATIVE Urine Nitrite NEGATIVE Urine Bilirubin NEGATIVE Urobilinogen Dipstick 6 A Urine Leukocytes NEGATIVE Urine WBC (Auto) <10 Urine RBC (Auto) <10 U Epithel Cells (Auto) <10 Urine Bacteria (Auto) NEGATIVE Orders Category Date Time Status Cardiac Monitoring DIRECTED Care 07/30/18 16:27 Active Cardiac Monitoring DIRECTED Care 07/30/18 16:38 Inactive IV Insertion ORDERED Care 07/30/18 16:27 Completed IV Insertion ORDERED Care 07/30/18 16:38 Inactive Notify MD of + Sepsis Screen NOW Care 07/30/18 16:27 Active Notify MD of + Sepsis Screen NOW Care 07/30/18 16:38 Inactive Notify Physician As Ordered Care 07/30/18 16:27 Active Notify Physician As Ordered Care 07/30/18 16:38 Inactive CHEST-PORTABLE [RAD] Stat Exams 07/30/18 16:44 Completed ABG [RESP] Routine Lab 07/30/18 17:00 Completed BLOOD CULTURE [BLDCUL] Stat Lab 07/30/18 16:40 Results CBC WITH DIFF [HEME] Stat Lab 07/30/18 16:40 Completed CK PROFILE [SP CHEM] Stat Lab 07/30/18 16:40 Completed COMPREHENSIVE METABOLIC PANEL [CHEM] Stat Lab 07/30/18 16:40 Completed INFLUENZA SCREEN A/B Stat Lab 07/30/18 17:43 Completed LACTATE, PLASMA [CHEM] Lab 07/30/18 19:42 Received LACTATE, PLASMA [CHEM] Lab 07/30/18 22:30 Uncollected LACTATE, PLASMA [CHEM] Q3H Lab 07/30/18 16:40 Completed MAGNESIUM [CHEM] Stat Lab 07/30/18 16:40 Completed PROTIME WITH INR [COAG] Stat Lab 07/30/18 16:40 Completed PTT [COAG] Stat Lab 07/30/18 16:40 Completed TROPONIN T Stat Lab 07/30/18 16:40 Completed URINALYSIS W/POSS RFLX CULT [URINALYSIS] Stat Lab 07/30/18 18:06 Completed 0.9% Sodium Chloride Inj [Ns] 1,000 ml Med 07/30/18 16:40 Discontinued IV 999 mls/hr 0.9% Sodium Chloride Inj [Ns] 1,000 ml Med 07/30/18 17:53 Discontinued IV 999 mls/hr Acetaminophen [Tylenol] Med 07/30/18 16:49 Discontinued 650 mg PO NOW ONE Albuterol 2.5MG/Ipratrop 0.5MG [Duoneb (A & A)] Med 07/30/18 16:41 Discontinued 3 ml INH NOW ONE Azithromycin 500 mg/Ns [Zithromax 500 mg/Ns] Med 07/30/18 19:52 Stop Req 500 mg in 250 ml IV NOW Levofloxacin 750 mg/D5w [Levaquin 750 mg/D5w] Med 07/30/18 17:41 Discontinued 750 mg in 150 ml IV NOW Aerosol Treatments Stat Oth 07/30/18 16:41 Completed Oxygen Device Stat Oth 07/30/18 16:27 Completed EKG [EKG] Stat Ther 07/30/18 16:39 Ordered Laboratory Tests 07/30/18 07/30/18 07/30/18 16:40 16:40 16:40 WBC 15.60 H RBC 5.16 Hgb 15.0 Hct 47.2 H MCV 91.5 MCH 29.1 MCHC 31.8 L RDW Std Deviation 13.7 Plt Count 229 MPV 10.4 Immature Gran % (Auto) 0.2 Neut % (Auto) 88.3 H Lymph % (Auto) 3.5 L [place] % (Auto) 7.8 Eos % (Auto) 0.0 Baso % (Auto) 0.2 Immature Gran # (Auto) 0.03 Neut # (Auto) 13.78 H Lymph # (Auto) 0.54 L [place] # (Auto) 1.22 H Eos # (Auto) 0.00 Baso # (Auto) 0.03 Segmented Neutrophils 87 H Band Neutrophils 4 H Lymphocytes 4 L Monocytes 5 PT 12.8 INR 0.89 PTT (Actin FS) 29.5 Specimen Type Sample Site pH pCO2 pO2 HCO3 Base Excess Oxyhemoglobin ABG O2 Sat (Calculated) ABG O2 Saturation ABG Carboxyhemoglobin ABG Methemoglobin Hal Test A-a O2 Difference Total Hemoglobin Lactate Liter Flow Blood Gas Modality FiO2 % Sodium 137 Potassium 4.5 Chloride 94 L Carbon Dioxide 31 Anion Gap 12 BUN 13 Creatinine 0.8 Estimated GFR/1.73 m2 > 60 BUN/Creatinine Ratio 16 Glucose 125 H Calculated Osmolality 275 Calcium 8.5 L Magnesium 1.6 Total Bilirubin 1.02 H AST 18 ALT 16 Alkaline Phosphatase 77 Creatine Kinase 25 Troponin T Total Protein 6.7 Albumin 4.2 Globulin 2.5 Albumin/Globulin Ratio 1.7 Plasma Lactate Urine Source Urine Color Urine Turbidity Urine pH Ur Specific [place] Urine Protein Ur Glucose (Stick) Ur Ketones (Stick) Urine Blood Urine Nitrite Urine Bilirubin Urobilinogen Dipstick Urine Leukocytes Urine WBC (Auto) Urine RBC (Auto) U Epithel Cells (Auto) Urine Bacteria (Auto) 07/30/18 07/30/18 07/30/18 16:40 16:40 17:00 WBC RBC Hgb Hct MCV MCH MCHC RDW Std Deviation Plt Count MPV Immature Gran % (Auto) Neut % (Auto) Lymph % (Auto) [place] % (Auto) Eos % (Auto) Baso % (Auto) Immature Gran # (Auto) Neut # (Auto) Lymph # (Auto) [place] # (Auto) Eos # (Auto) Baso # (Auto) Segmented Neutrophils Band Neutrophils Lymphocytes Monocytes PT INR PTT (Actin FS) Specimen Type ARTERIAL Sample Site R BRACHIAL pH 7.38 pCO2 51 H* pO2 150 H HCO3 27.8 H Base Excess 3.8 H Oxyhemoglobin 95.5 ABG O2 Sat (Calculated) 20.5 ABG O2 Saturation 97.6 ABG Carboxyhemoglobin 1.40 ABG Methemoglobin 0.8 Hal Test NO A-a O2 Difference 71.0 Total Hemoglobin 15.1 Lactate 0.80 Liter Flow 6.0 Blood Gas Modality SIMPLE MASK FiO2 % 40.0 Sodium Potassium Chloride Carbon Dioxide Anion Gap BUN Creatinine Estimated GFR/1.73 m2 BUN/Creatinine Ratio Glucose Calculated Osmolality Calcium Magnesium Total Bilirubin AST ALT Alkaline Phosphatase Creatine Kinase Troponin T < 0.010 Total Protein Albumin Globulin Albumin/Globulin Ratio Plasma Lactate 1.1 Urine Source Urine Color Urine Turbidity Urine pH Ur Specific [place] Urine Protein Ur Glucose (Stick) Ur Ketones (Stick) Urine Blood Urine Nitrite Urine Bilirubin Urobilinogen Dipstick Urine Leukocytes Urine WBC (Auto) Urine RBC (Auto) U Epithel Cells (Auto) Urine Bacteria (Auto) 07/30/18 18:06 WBC RBC Hgb Hct MCV MCH MCHC RDW Std Deviation Plt Count MPV Immature Gran % (Auto) Neut % (Auto) Lymph % (Auto) [place] % (Auto) Eos % (Auto) Baso % (Auto) Immature Gran # (Auto) Neut # (Auto) Lymph # (Auto) [place] # (Auto) Eos # (Auto) Baso # (Auto) Segmented Neutrophils Band Neutrophils Lymphocytes Monocytes PT INR PTT (Actin FS) Specimen Type Sample Site pH pCO2 pO2 HCO3 Base Excess Oxyhemoglobin ABG O2 Sat (Calculated) ABG O2 Saturation ABG Carboxyhemoglobin ABG Methemoglobin Hal Test A-a O2 Difference Total Hemoglobin Lactate Liter Flow Blood Gas Modality FiO2 % Sodium Potassium Chloride Carbon Dioxide Anion Gap BUN Creatinine Estimated GFR/1.73 m2 BUN/Creatinine Ratio Glucose Calculated Osmolality Calcium Magnesium Total Bilirubin AST ALT Alkaline Phosphatase Creatine Kinase Troponin T Total Protein Albumin Globulin Albumin/Globulin Ratio Plasma Lactate Urine Source CLEAN CATCH Urine Color YELLOW Urine Turbidity CLEAR Urine pH 6.5 Ur Specific [place] 1.021 Urine Protein TRACE A Ur Glucose (Stick) NEGATIVE Ur Ketones (Stick) TRACE A Urine Blood NEGATIVE Urine Nitrite NEGATIVE Urine Bilirubin NEGATIVE Urobilinogen Dipstick 6 A Urine Leukocytes NEGATIVE Urine WBC (Auto) <10 Urine RBC (Auto) <10 U Epithel Cells (Auto) <10 Urine Bacteria (Auto) NEGATIVE Discussed results and plan of care with patient. Patient agrees with plan and verbalizes understanding. (Fredy Hong) Departure - Critical Care Note This patient required my direct & personal management of CC.: Yes Total Time (mins): 48 Critical Care Statement: This patient required my direct personal management to treat or rule out processes, the absence of which, could potentiallly result in sudden, clinically significant life or limb threatening deterioration. <Juana Whitfield - Last Filed: 07/30/18 18:01> - Departure Date of Disposition Decision: 07/30/18 Time of Disposition Decision: 19:51 Certified Medical Emergency: Emergent <Fredy Hong - Last Filed: 07/30/18 20:09> - Departure DIAGNOSIS: Hypoxia, Elevated bilirubin CAP (community acquired pneumonia) Qualifiers: Laterality: unspecified laterality Qualified Code(s): J18.9 - Pneumonia, unspecified organism Disposition: ADMITTED INPATIENT 09 Condition: Stable Referrals and Follow-Ups: LEWIS THAO [Primary Care Provider] - Attestation - Physician/ MARIANA Attestation Patient care was provided by Advanced Practice Provider:: No The physician spent face to face time with patient:: Yes Advanced Practice Provider documentation review:: Supervising physician onsite and consulted in the evaluation and care of this patient. The physician did have a face to face encounter with the patient. <Juana Whitfield - Last Filed: 07/30/18 18:01> - Physician/ MARIANA Attestation Patient care was provided by Advanced Practice Provider:: No The physician spent face to face time with patient:: Yes Advanced Practice Provider documentation review:: Supervising physician onsite and consulted in the evaluation and care of this patient. The physician did have a face to face encounter with the patient. - Physician/ MARIANA Attestation #2 Shift Change Time: 18:00 Patient care was provided by Advanced Practice Provider:: Yes Advanced Practice Provider:: Fredy Hong The physician spent face to face time with patient:: Yes Advanced Practice Provider documentation review:: Supervising physician onsite and consulted in the evaluation and care of this patient. The physician did have a face to face encounter with the patient. <Fredy Hong - Last Filed: 07/30/18 20:09> This chart was documented by the indicated scribe, (Eli Gifford Scribe) and accurately reflects the services I performed and decisions made by , Juana Whitfield MD, as attested by the provider's signature.
--- NOTE | 2018-08-03 15:19 | DISCHARGE SUMMARY ---
ADMISSION DATE: 07/30/2018 DISCHARGE DATE: 08/02/2018 DISCHARGE DIAGNOSIS: 1. Chronic obstructive pulmonary disease exacerbation, acute. 2. Pneumonia which was felt to be left lower lobe. 3. Hyperglycemia at least on initial evaluation. He seems pretty stable now, possibly steroid induced. 4. Hypoxic respiratory failure which may have a chronic component. CONSULTATIONS: Dr. Mi. Briefly this is a 67-year-old female with COPD, breast cancer, who comes in with shortness of breath. She had been on Augmentin and prednisone but then started to suddenly worsen. She was placed on Levaquin and cefepime for possible Pseudomonas. Clinically she improved. Dr. Mi consulted recommended continuing her current antibiotics. There was question of sputum culture results but we did get a sputum on her but clinically she continued to improve. Her chest x-ray was stable on the . It did not look like there was she had a little bit of left lower lobe infiltrate but nothing too extensive so I think she was stable for discharge. Follow up with her PCP and Dr. Mi. I am going to discharge her on Levaquin for another 10 days and a Medrol Dosepak and give her breathing treatments which I think she has but will see how she does and follow up with Dr. Mi and her PCP who is Dr. Tasha Hutchison. A 32 minute discharge. Now she did qualify for home oxygen so we are going to try to set that up prior to discharge. cc: Vikas Rao MD
== END 2018-08-02 20:30 | disposition home or self-care (01) | DRG 871 ==
LOC: ED 16:18 → 4N 21:53 → SUATTDRO 21:53
PROVIDERS: ATTEND Internal Medicine
CPT/HCPCS: 71010; 71020; 71045; 71046; 71250; 80048; 80053; 81001; 82550; 82805; 83605; 83735; 84484; 85025; 85610; 85730; 87040; 87275; 87276; 87804; 93005; 93010; 94640; 94761; 94799; 96361; 96365; 96366; 96375; 99285; 99291; A9270; J0692; J1650; J1956; J2405; J7030; J7040; J7506; J7512

== ENCOUNTER 2018-11-14 11:17 | Inpatient (IN) ==
[2018-11-14] MEDS ORDERED: SOLU-MEDROL IV ONE (12:28)
[2018-11-14] MEDS ORDERED: DUONEB (A & A) INH ONE (12:28)
[2018-11-14 12:43] LABS: BASO# 0.03 X1000 (0.0-0.2); BASO% 0.3 % (0.0-0.8); EOS# 0.06 X1000 (0.0-0.7); EOS% 0.6 % (0.0-10.0); HEMATOCRIT 42.4 % (37.0-47.0); HEMOGLOBIN 13.1 g/dL (12.0-16.0); IMM GRAN# 0.02 X1000 (0.0-0.04); IMM GRAN% 0.2 % (0.0-0.5); LYMPH# 0.82 X1000 (1.2-3.4); LYMPH% 7.6 % (20.5-51.1); MCH 28.7 PG (27-31); MCHC 30.9 g/dL (33-37); MONO# 1.25 X1000 (0.11-0.59); MONO% 11.6 % (1.7-9.3); MPV 10.7 FL (7.4-10.4); NEUT# 8.58 X1000 (1.4-6.5); NEUT% 79.7 % (42.2-75.2); PLT 188 X1000 (130-400); RBC 4.56 XMIL (4.2-5.4); RDW 12.7 % (11.5-14.5); WBC 10.76 X1000 (4.8-10.8)
[2018-11-14 12:53] LABS: INR 0.86; PROTIME 12.4 Seconds (11.0-16.0)
[2018-11-14 13:05] LABS: AGAP 8; ALB/GLOB RATIO 1.9; ALBUMIN 4.3 g/dL (3.5-5.0); ALKALINE PHOSPHATASE 76 U/L (32-104); BUN 16 mg/dL (8-22); CALCIUM 9.1 mg/dL (8.8-10.2); CHLORIDE 96 mmol/L (98-107); COSMO 279; CREATININE 0.6 mg/dL (0.5-0.9); ESTIMATED GFR > 60; GLUCOSE 104 mg/dL (70-104); GOT 20 U/L (10-30); GPT 15 U/L (10-36); POTASSIUM 4.3 mmol/L (3.5-5.1); SODIUM 139 mmol/L (136-145); TCO2 35 mmol/L (25-35); TOTAL BILIRUBIN 0.54 mg/dL (0.20-1.00); TOTAL PROTEIN 6.6 g/dL (6.3-8.3)
--- NOTE | 2018-11-14 13:07 | Diag Imaging Result Doc PS360 ---
EXAM: CHEST-2 VIEWS 11/14/2018 HISTORY: short of breath TECHNIQUE: PA and lateral chest COMMENT: There is COPD. The heart size and pulmonary vascularity are within normal limits. There is volume loss and ill-defined opacity present in the right middle lobe. This is somewhat improved since 08/23/2018. IMPRESSION: COPD and right middle lobe pneumonia. Advise follow-up until clear. Electronically signed by Fortino Cisneros 11/14/2018 1:05 PM
[2018-11-14] MEDS ORDERED: ZITHROMAX 500 MG/NS 500 MG/250 ML IVPB IV ONE (13:41)
[2018-11-14] MEDS ORDERED: ROCEPHIN 2 GM in NS 50 ML IV ONE (13:41)
--- NOTE | 2018-11-14 14:31 | PROVIDER DOCUMENTATION ---
This chart was entered by Eli Gifford Scribe, acting as scribe for Nasir Linton MD. HPI-Respiratory General - General Chief Complaint: Shortness of Breath Stated Complaint: CANT BREATHE Time Seen by Provider: 11/14/18 12:23 Source: patient, family () Allergies/Adverse Reactions: Patient Allergies Allergy/AdvReac Type Severity Reaction Status Date / Time No Known Allergies Allergy Verified 01/08/18 05:31 Home Medications: Home Medication List Medication Instructions Recorded Confirmed Last Taken Type Azelastine 137 Mcg Nasal Daphne 2 spray IGGY BID 01/02/18 07/30/18 01/08/18 03:30 History [Astelin Nasal Daphne] Calcium Carb/Vitamin D3/Vit K1 2 each PO DAILY 01/02/18 07/30/18 01/07/18 History [Viactiv Soft Chew] Fexofenadine/Pse E.r. 12 Hr 1 each PO DAILY 01/02/18 07/30/18 01/07/18 History [Ekaterina-D 12 Hour] Fluticasone/Umeclidin/Vilanter 1 each IH DAILY 01/02/18 07/30/18 01/08/18 03:30 History [Trelegy Ellipta 100-62.5-25] Letrozole [Femara] 2.5 mg PO QHS 07/31/18 07/31/18 07/29/18 20:00 History Venlafaxine E.r. [Effexor Xr] 37.5 mg PO QHS 07/31/18 07/31/18 07/29/18 20:00 History Albuterol 2.5MG/Ipratrop 0.5MG 3 ml INH RTQ6H #120 neb 08/02/18 Unknown Rx [Duoneb] CefDINIR [Omnicef] 300 mg PO BID #14 capsule 08/02/18 Unknown Rx Prednisone See Taper PO DAILY #30 tab 08/02/18 Unknown Rx - History of Present Illness-Resp Nature of Presenting Problem: 67 yowf presents to the ed with c/o sob and excessive sputum production with cough. pt sts onset was last night and has became worse this am. pt has COPD and has been using home O2 since onset of sx. pt had recent URI Quality of Pain: reports: none Severity in ED: reports: mild Onset/Duration: reports: last night Timing: reports: still present, getting worse Context: reports: recent URI Cough Quality/Degree: reports: moderate, productive cough, sputum Episode Frequency: frequent episodes Current Respiratory Medication Therapy: Initiated see nurses note Modifying Factors: worse with: exertion, coughing Associated Symptoms: reports: cough, shortness of breath. denies: chest pain/soreness, dizziness, fever/chills, wheezing Similar Symptoms Previously?: Yes (copd) Recently seen or treated by another doctor?: No Review of Systems - Adult - REVIEW OF SYSTEMS - ADULT Constitutional: denies: chills, fever Eyes: reports: no symptoms reported Ears, Nose, Mouth & Throat: reports: no symptoms reported Cardiovascular: denies: chest pain, palpitations Respiratory: reports: see HPI, chronic cough, dyspnea on exertion, excessive sputum production, shortness of breath Gastrointestinal: denies: abdominal pain, diarrhea, nausea, vomiting Genitourinary: reports: no symptoms reported Musculoskeletal: denies: back pain, neck pain Integumentary: reports: no symptoms reported Neurological: reports: no symptoms reported Psychiatric: reports: no symptoms reported Endocrine: reports: no symptoms reported Hematologic/Lymphatic: reports: no symptoms reported Allergic/Immunologic: reports: no symptoms reported All Other Systems: Reviewed and Negative Past History - Adult - PAST MEDICAL HISTORY-ADULT Review of Records: reports: Nursing Assessment Review, Medications Reviewed Major Childhood Illnesses: reports: denies history Cardiovascular: reports: denies history Respiratory: reports: COPD Gastrointestinal: reports: denies history Obstetrical/Gynecological: reports: denies history Genitourinary: reports: denies history Musculoskeletal: reports: denies history Hand Dominance: Right Handed Neurological: reports: denies history Psychiatric: reports: denies history Endocrine/Immune: reports: denies history Other Conditions: reports: other cancer (rt breast cancer stage 1) - PRIOR SURGERIES/PROCEDURES Surgical/Procedure History: reports: reviewed, not pertinent - IMMUNIZATION STATUS Childhood Immunizations: See Nurse Assessment Flu Vaccine: See Nurse Assessment - FAMILY HISTORY Family History: reviewed, not pertinent - SOCIAL HISTORY Smoking: quit greater than 1 year Substance Use: denies Living Situation: family Physical Exam-General - PHYSICAL EXAM-ADULT Initial Vital Signs Reviewed: Yes - CONSTITUTIONAL General Appearance: alert, mild distress - EYES Eyes: PERRL/EOMI, pink conjunctivae - HEAD, EARS, NOSE, MOUTH & THROAT HENMT: moist mucous membranes, normal ENT inspection - NECK Neck: full range of motion, supple, normal inspection - RESPIRATORY Respiratory: chest non-tender, respiratory distress (mild), rhonchi (diffuse), increased rate (24) - CARDIOVASCULAR Cardiovascular: normal peripheral pulses, regular rate, rhythm - GASTROINTESTINAL (ABDOMEN) Abdominal Exam: normal bowel sounds, non tender, soft - LYMPHATIC Lymphatic: no adenopathy - MUSCULOSKELETAL Back Exam: normal inspection, no CVA tenderness, no vertebral tenderness Extremity: normal range of motion, non-tender, normal gait, normal inspection, no pedal edema, no calf tenderness, pelvis stable - SKIN Integumentary: normal turgor, warm/dry, pallor - NEUROLOGIC Neurologic: grossly normal, no motor/sensory deficits - PSYCHIATRIC Psych/Mental Status: normal mood/affect, normal thought content, normal thought process, oriented x 3 Progress - PLAN OF CARE/RESULTS Progress/Plan/Lab Results: Vital Signs - 8 hr 11/14/18 11:38 11/14/18 11:58 11/14/18 11:59 Temperature 97.8 F Pulse Rate 92 H 96 H 94 H Respiratory Rate 20 Blood Pressure 112/55 111/61 O2 Sat by Pulse Oximetry 93 L 98 98 11/14/18 12:00 11/14/18 13:19 11/14/18 14:01 Temperature 98.3 F Pulse Rate 94 H 97 H 102 H Respiratory Rate 21 20 Blood Pressure 120/62 O2 Sat by Pulse Oximetry 98 94 L 96 11/14/18 13:13 Influenza Screen - Final Nasopharyngeal Laboratory Results - last 24 hr 11/14/18 11/14/18 11/14/18 12:15 12:15 12:15 WBC 10.76 RBC 4.56 Hgb 13.1 Hct 42.4 MCV 93.0 MCH 28.7 MCHC 30.9 L RDW Std Deviation 12.7 Plt Count 188 MPV 10.7 H Immature Gran % (Auto) 0.2 Neut % (Auto) 79.7 H Lymph % (Auto) 7.6 L [place] % (Auto) 11.6 H Eos % (Auto) 0.6 Baso % (Auto) 0.3 Immature Gran # (Auto) 0.02 Neut # (Auto) 8.58 H Lymph # (Auto) 0.82 L [place] # (Auto) 1.25 H Eos # (Auto) 0.06 Baso # (Auto) 0.03 PT 12.4 INR 0.86 Sodium 139 Potassium 4.3 Chloride 96 L Carbon Dioxide 35 Anion Gap 8 BUN 16 Creatinine 0.6 Estimated GFR/1.73 m2 > 60 BUN/Creatinine Ratio 27 Glucose 104 Calculated Osmolality 279 Calcium 9.1 Total Bilirubin 0.54 AST 20 ALT 15 Alkaline Phosphatase 76 Troponin T Gto-X-Zvwzhquxesz Pept Total Protein 6.6 Albumin 4.3 Globulin 2.3 Albumin/Globulin Ratio 1.9 11/14/18 11/14/18 12:15 12:15 WBC RBC Hgb Hct MCV MCH MCHC RDW Std Deviation Plt Count MPV Immature Gran % (Auto) Neut % (Auto) Lymph % (Auto) [place] % (Auto) Eos % (Auto) Baso % (Auto) Immature Gran # (Auto) Neut # (Auto) Lymph # (Auto) [place] # (Auto) Eos # (Auto) Baso # (Auto) PT INR Sodium Potassium Chloride Carbon Dioxide Anion Gap BUN Creatinine Estimated GFR/1.73 m2 BUN/Creatinine Ratio Glucose Calculated Osmolality Calcium Total Bilirubin AST ALT Alkaline Phosphatase Troponin T < 0.010 Jpo-X-Ctdsbggjfct Pept 394 H Total Protein Albumin Globulin Albumin/Globulin Ratio Orders Category Date Time Status CHEST-2 VIEWS [RAD] Stat Exams 11/14/18 12:28 Completed BLOOD CULTURE [BLDCUL] Stat Lab 11/14/18 12:46 Received CBC WITH ELECTRONIC DIFF [HEME] Stat Lab 11/14/18 12:15 Completed COMPREHENSIVE METABOLIC PANEL [CHEM] Stat Lab 11/14/18 12:15 Completed INFLUENZA SCREEN A/B Stat Lab 11/14/18 13:13 Completed PRO B-NATRIURETIC PEPTIDE Stat Lab 11/14/18 12:15 Completed PROTIME WITH INR [COAG] Stat Lab 11/14/18 12:15 Completed TROPONIN T Stat Lab 11/14/18 12:15 Completed Albuterol 2.5MG/Ipratrop 0.5MG [Duoneb (A & A)] Med 11/14/18 12:28 Discontinued 3 ml INH NOW ONE Azithromycin 500 mg/Ns [Zithromax 500 mg/Ns] Med 11/14/18 13:41 Active 500 mg in 250 ml IV NOW CefTRIAXONE [Rocephin] 2 gm Med 11/14/18 13:41 Discontinued 0.9% Sodium Chloride Inj [Ns] 50 ml IV NOW Methylprednisolone Sod Succ [Solu-Medrol] Med 11/14/18 12:28 Discontinued 125 mg IV NOW ONE Aerosol Treatments Routine Oth 11/14/18 12:29 Completed Aerosol Treatments Stat Oth 11/14/18 12:29 Completed Result Diagrams: 11/14/18 12:15 11/14/18 12:15 - XRAY 1 XRAY: Bilateral XRAY Study: Chest Impression: See EMR Report (EXAM: CHEST-2 VIEWS 11/14/2018 HISTORY: short of breath TECHNIQUE: PA and lateral chest COMMENT: There is COPD. The heart size and pulmonary vascularity are within normal limits. There is volume loss and ill-defined opacity present in the right middle lobe. This is somewhat improved since 08/23/2018. IMPRESSION: COPD and right middle lobe pneumonia. Advise follow-up until clear. Electronically signed by Fortino Cisneros 1:05 PM 11/14/18 1309 Interpreting Physician: Fortino Cisneros MD Dictated Date/Time: 11/14/18 1302 cc: Nasir Linton MD; Tasha Hutchison MD) - CONSULTS/PCP/HOSPITALIST Notification #1 *Consult/PCP/Hospitalist*: hospitalist Time Discussed: 14:28 Consult Disposition: Admit Departure - Departure Date of Disposition Decision: 11/14/18 Time of Disposition Decision: 14:28 DIAGNOSIS: PNA (pneumonia) Qualifiers: Pneumonia type: due to unspecified organism Laterality: right Lung location: m iddle lobe of lung Qualified Code(s): J18.1 - Lobar pneumonia, unspecified organism Disposition: ADMITTED INPATIENT 09 Certified Medical Emergency: Emergent Condition: Stable Additional Freetext Instructions: ED Follow Up Instructions: You have been treated by a care provider in the Emergency Department. These instructions are being provided to you so you can have an understanding of how to care for yourself upon discharge. Upon discharge from the Emergency Department, you are responsible for making arrangements for follow-up care by a physician of your choice. Take all prescribed medications as directed. Return to the Emergency Department immediately for any new or worsening symptoms. You may call the Physician Referral phone number at [phone] to obtain a list of Physicians who are taking new patients. Referrals and Follow-Ups: Tasha Hutchison MD [Primary Care Provider] - - Critical Care Note This patient required my direct & personal management of CC.: No Attestation - Physician/ MARIANA Attestation Patient care was provided by Advanced Practice Provider:: No The physician spent face to face time with patient:: Yes Advanced Practice Provider documentation review:: Supervising physician onsite and consulted in the evaluation and care of this patient. The physician did have a face to face encounter with the patient. This chart was documented by the indicated scribe, (Eli Gifford Scribe) and accurately reflects the services I performed and decisions made by me, Nasir Linton MD, as attested by the provider's signature.
[2018-11-14] MEDS ORDERED: ZOFRAN IV PRN (15:08)
[2018-11-14] MEDS ORDERED: DUONEB (A & A) INH PRN (15:15)
[2018-11-14] MEDS: DUONEB (A & A) INH SCH ×3 (15:30→23:15)
--- NOTE | 2018-11-14 19:44 | HISTORY AND PHYSICAL ---
CHIEF COMPLAINT: Shortness of breath. HISTORY OF PRESENT ILLNESS: This is a 67-year-old female who presented to the emergency room complaining of 24 hours of shortness of breath. She states that it increased through the morning, prompting her visit to the ER. She does have home O2, and she states that she is used it continuously since symptoms began with no relief. She denies any fevers, chills, any chest pain, palpitations. PAST MEDICAL HISTORY: 1. COPD. 2. History of breast cancer in 2018. PAST SURGICAL HISTORY: Appendectomy, breast biopsy, tonsillectomy. SOCIAL HISTORY: She smokes a pack a day. She denies alcohol, illicit drug use. ALLERGIES: No known drug allergies. HOME MEDICATIONS: A list will be obtained by the nursing staff, and once verified, we will review and restart as appropriate. REVIEW OF SYSTEMS: Discussed with the patient with pertinent positives stated in HPI. She denied any syncope or dizziness, any chest pain, palpitations, any fevers, chills, night sweats, recent weight loss or weight gain, any nausea, vomiting, diarrhea, constipation, black or bloody vomitus or stools, hematuria, dysuria, frequency, urgency. PHYSICAL EXAMINATION: GENERAL: This is a 67-year-old female who is lying on the stretcher in the emergency room in no distress. VITAL SIGNS: Blood pressure is 112/55 with a heart rate of 92, respirations are 20, temperature is 97.8 degrees with O2 saturation 93% to 96% on 2 L nasal cannula. EYES: Pupils equal, round, react to light. EOMs are intact. Sclerae anicteric. HEENT: Head is normocephalic, atraumatic. Mucous membranes are moist. NECK: Supple. Trachea midline. CARDIOVASCULAR: Regular rate and rhythm. S1 and S2 appreciated. Calves are nontender bilateral. She has no lower extremity edema peripheral. PULMONARY: Breath sounds with diffuse wheezes with rhonchi that do not clear to cough. Chest rises and falls symmetric with respiration. Chest wall is nontender to palpation. GASTROINTESTINAL: Soft, nontender, nondistended with bowel sounds in all 4 quadrants. SKIN: Warm and dry. NEUROLOGIC: She is alert and oriented. LABORATORY DATA: 1. WBC is 10.7 with hemoglobin 13.1, hematocrit 42.4 and platelets of 188,000. Sodium 139, potassium 4.3, BUN 16, creatinine 0.6, glucose 104. Blood cultures are pending. 2. Influenza A and B are negative. IMAGING: Chest x-ray reveals COPD and right middle lobe pneumonia. ASSESSMENT AND PLAN: 1. Right middle lobe pneumonia. She was given Rocephin and azithromycin in the emergency room. We will continue. 2. Chronic obstructive pulmonary disease exacerbation. We will give steroids to taper, DuoNebs q.4 hours and q.2 hours p.r.n. and supplemental oxygen. 3. Further treatments pending hospital course. Patient seen and examined by me face to face, all the laboratory, vitals signs and images were reviewed, patient presented with shortness of breath, cough for the last day, she has a history of COPD and currently under treatment by Dr Mi, image showed right middle lobe pneumonia, she will be placed on antibiotics, breathing treatment, steroids, oxygen as well, telemetry, we will monitor this patient on a daily basis, she has lung crepitus and rhonchi in the right upper and middle part with wheezing, I agree with the rest of the ORGANISATION AND METHODS ANALYST's assessment and plan, Jonathan Minor MD Dictated by SANDY Rothman for Jonathan Del Cid MD cc: SANDY Rothman MD [facility]
[2018-11-14] MEDS: FEMARA PO SCH (20:43)
[2018-11-14] MEDS: SOLU-MEDROL IV SCH (20:45)
[2018-11-14] MEDS: EFFEXOR XR PO SCH (20:45)
[2018-11-14] MEDS: ASTELIN NASAL SPRAY NAS SCH (21:11)
[2018-11-15] MEDS: DUONEB (A & A) INH SCH ×6 (03:15→23:03)
[2018-11-15] MEDS: SOLU-MEDROL IV SCH (04:15)
[2018-11-15 04:43] LABS: ALLEN TEST YES; BE 6.6 mmoll (-3.0-3.0); BLOOD TYPE ARTERIAL; HCO3-(ACT) 30.1 mmoll (20.0-26.0); PO2(98.6) 117 mmHg (60-100); SAMPLE BLOOD; pH(98.6) 7.33 (7.35-7.45)
[2018-11-15 04:44] LABS: MODALITY CANNULA; PCO2(98.6) 66 mmHg (35-45)
[2018-11-15 07:06] LABS: BASO# 0.01 X1000 (0.0-0.2); BASO% 0.1 % (0.0-0.8); HEMATOCRIT 40.3 % (37.0-47.0); HEMOGLOBIN 12.6 g/dL (12.0-16.0); LYMPH# 0.37 X1000 (1.2-3.4); LYMPH% 4.4 % (20.5-51.1); MCH 29.2 PG (27-31); MCHC 31.3 g/dL (33-37); MCV 93.3 FL (81-99); MONO# 0.27 X1000 (0.11-0.59); MONO% 3.2 % (1.7-9.3); MPV 10.1 FL (7.4-10.4); NEUT# 7.82 X1000 (1.4-6.5); NEUT% 92.3 % (42.2-75.2); PLT 190 X1000 (130-400); RBC 4.32 XMIL (4.2-5.4); RDW 12.8 % (11.5-14.5); WBC 8.47 X1000 (4.8-10.8)
[2018-11-15 07:25] LABS: AGAP 9; BUN 15 mg/dL (8-22); CALCIUM 9.3 mg/dL (8.8-10.2); CHLORIDE 102 mmol/L (98-107); COSMO 288; CREATININE 0.6 mg/dL (0.5-0.9); ESTIMATED GFR > 60; GLUCOSE 136 mg/dL (70-104); POTASSIUM 4.8 mmol/L (3.5-5.1); SODIUM 143 mmol/L (136-145); TCO2 32 mmol/L (25-35)
[2018-11-15] MEDS: CALTRATE 600 + D PO SCH (09:22)
[2018-11-15] MEDS: ASTELIN NASAL SPRAY NAS SCH ×2 (09:24→20:41)
[2018-11-15] MEDS: ALLEGRA-D 12 HOUR PO SCH (09:24)
[2018-11-15] MEDS: NON-FORMULARY BULK MED INH SCH (13:12)
[2018-11-15] MEDS: ZITHROMAX PO SCH (14:43)
[2018-11-15] MEDS: ROCEPHIN 1 GM in NS 50 ML IV SCH (14:43)
--- NOTE | 2018-11-15 15:02 | PROGRESS NOTE ---
DATE: 11/15/2018 SUBJECTIVE: This patient is feeling better today, she is still coughing and having some shortness of breath, pCO2 elevated at 66, a little increase on the blood sugar but this patient is getting steroids which I will decrease, no wheezing today. OBJECTIVE: Vital Signs: Temperature 98.8 degrees, pulse 107, respiratory rate 17, blood pressure 121/50, oxygen saturation 100% on 2 L of nasal cannula. HEENT: Head normocephalic. No trauma. PERRLA. Neck: Supple. No JVD. No masses. Central trachea. Chest: Decreased breath sounds globally with prolonged expiratory phase. No wheezing today but she has some crepitus at the bases and right-sided rhonchi diffusely. Abdomen: Soft, nontender, nondistended. No hepatosplenomegaly. Extremities: No edema, no clubbing, no cyanosis. Neurological: The patient is alert and oriented x3. No focal deficits. LABORATORY: WBC 8.4, hemoglobin 12.6, hematocrit 40.3, platelets 190,000. Sodium 143, potassium 4.8, chloride 102, bicarbonate 32, BUN 15, creatinine 0.6, glucose 166, calcium 9.3. ASSESSMENT AND PLAN: 1. Right middle lobe pneumonia, continue with Rocephin and azithromycin, this patient seems to be feeling better. Will continue with the same management. 2. Chronic obstructive pulmonary disease exacerbation, she is not wheezing today and she is breathing better so I will decrease the dose and frequency of the IV steroids and I will monitor. 3. History of breast cancer in 2018 aware. 4. Chronic hypoxemic respiratory failure on home O2 mostly during the night and as needed, she also is hypercarbic which seems to be chronic as well. cc: Jonathan Del Cid MD
[2018-11-15] MEDS: EFFEXOR XR PO SCH (20:41)
[2018-11-15] MEDS: FEMARA PO SCH (20:41)
[2018-11-16] MEDS: DUONEB (A & A) INH SCH ×6 (03:00→23:02)
[2018-11-16 05:35] LABS: ALLEN TEST YES; BE 8.5 mmoll (-3.0-3.0); BLOOD TYPE ARTERIAL; HCO3-(ACT) 31.6 mmoll (20.0-26.0); METHB 0.8 % (0.0-1.5); O2HB 97.4 % (95.0-99.0); PO2(98.6) 166 mmHg (60-100); SAMPLE BLOOD; SAO2 99.9 % (95.0-100.0); THB 11.4 g/dL (11.5-17.4); pH(98.6) 7.39 (7.35-7.45)
[2018-11-16 05:38] LABS: MODALITY CANNULA; PCO2(98.6) 58 mmHg (35-45)
--- NOTE | 2018-11-16 06:44 | Diag Imaging Result Doc PS360 ---
EXAM: CHEST-PORTABLE HISTORY: dyspnea TECHNIQUE: Portable chest single view COMPARISON: 11/14/2018 FINDINGS: The lungs are hyperexpanded and pulmonary vessels are small. No cardiomegaly. There are no infiltrates. No pleural effusions identified. Old fracture to the left fourth rib. IMPRESSION: Emphysema. No definite pneumonia. Electronically signed by Ozzie Benites 11/16/2018 6:42 AM
[2018-11-16 07:11] LABS: BASO# 0.02 X1000 (0.0-0.2); BASO% 0.2 % (0.0-0.8); EOS# 0.08 X1000 (0.0-0.7); EOS% 0.8 % (0.0-10.0); HEMATOCRIT 39.1 % (37.0-47.0); IMM GRAN# 0.02 X1000 (0.0-0.04); IMM GRAN% 0.2 % (0.0-0.5); LYMPH# 1.17 X1000 (1.2-3.4); LYMPH% 11.9 % (20.5-51.1); MCH 29.1 PG (27-31); MCHC 30.7 g/dL (33-37); MCV 94.9 FL (81-99); MONO% 9.2 % (1.7-9.3); MPV 10.6 FL (7.4-10.4); NEUT# 7.62 X1000 (1.4-6.5); NEUT% 77.7 % (42.2-75.2); PLT 198 X1000 (130-400); RBC 4.12 XMIL (4.2-5.4); WBC 9.81 X1000 (4.8-10.8)
[2018-11-16 07:45] LABS: AGAP 8; BUN 23 mg/dL (8-22); CALCIUM 8.7 mg/dL (8.8-10.2); CHLORIDE 102 mmol/L (98-107); COSMO 296; CREATININE 0.7 mg/dL (0.5-0.9); ESTIMATED GFR > 60; GLUCOSE 88 mg/dL (70-104); POTASSIUM 5.1 mmol/L (3.5-5.1); SODIUM 147 mmol/L (136-145); TCO2 37 mmol/L (25-35)
[2018-11-16] MEDS: NON-FORMULARY BULK MED INH SCH (08:30)
[2018-11-16] MEDS: CALTRATE 600 + D PO SCH (09:22)
[2018-11-16] MEDS: ASTELIN NASAL SPRAY NAS SCH ×2 (09:22→20:00)
[2018-11-16] MEDS: SOLU-MEDROL IV SCH (09:22)
[2018-11-16] MEDS: ALLEGRA-D 12 HOUR PO SCH (09:22)
--- NOTE | 2018-11-16 10:45 | PROGRESS NOTE ---
DATE: 11/16/2018 SUBJECTIVE: The patient is feeling better today. She is hypernatremic and her BUN is also increased. I talked to the patient and she will start drinking a little bit more of water. As per the patient, she has not been drinking too much water since admission even though she has been on a diet. Her pCO2 decreased compared with yesterday. No chest pain. She has been coughing up some phlegm. No nausea, no vomiting, no diarrhea, no constipation, no fever, and no chills. OBJECTIVE: Vital Signs: Temperature 98.2, pulse 109, respiratory rate 18, blood pressure 107/59, oxygen saturation 98% on 2 L of nasal cannula. HEENT: Head is normocephalic. No trauma. PERRLA. Neck: Supple. No JVD. No masses. Central trachea. Chest: She has decreased breath sounds globally with prolonged expiratory phase. Today she has faint end-expiratory wheezing. She has some diffuse rhonchi, mostly on the right base. Abdomen: Soft, nontender, and nondistended. No hepatosplenomegaly. Extremities: No edema, no clubbing, and no cyanosis. Neurological: This patient is completely alert and oriented times 3. No focal deficits. LABORATORY: WBC 9.8, hemoglobin 12, hematocrit 39.1, and platelets 198. PCO2 is 58. Sodium 147, potassium 5.1, chloride 102, bicarbonate 37, BUN 23, creatinine 0.7, glucose 88, and calcium 8.7. ASSESSMENT AND PLAN: 1. Right middle lobe pneumonia. Continue with Rocephin and Azithromycin. Chest x-ray seems to be better and she is feeling better also. We will continue with the same management. 2. Chronic obstructive pulmonary disease exacerbation. She is having some end-expiratory wheezing today, faint, but she is feeling better. We will continue with the same management. The dose of the steroids has been decreased already. 3. History of breast cancer in 2018. Aware. 4. Chronic hypoxemic respiratory failure on home O2 mostly during the night and also as needed. She is also having likely chronic hypercarbic respiratory failure as well. Overall this patient is doing much better. We will increase the water intake today. Continue with her breathing treatment. I have already decreased significantly the amount of steroids on this patient and hopefully tomorrow this patient can be discharged home. cc: Jonathan Del Cid MD
[2018-11-16] MEDS: ZITHROMAX PO SCH (14:00)
[2018-11-16] MEDS: ROCEPHIN 1 GM in NS 50 ML IV SCH (14:00)
[2018-11-16] MEDS: FEMARA PO SCH (20:01)
[2018-11-16] MEDS: EFFEXOR XR PO SCH (20:01)
[2018-11-17] MEDS: DUONEB (A & A) INH SCH ×3 (03:39→11:19)
[2018-11-17 03:57] LABS: ALLEN TEST YES; BE 12.3 mmoll (-3.0-3.0); BLOOD TYPE ARTERIAL; HCO3-(ACT) 34.5 mmoll (20.0-26.0); METHB 0.6 % (0.0-1.5); O2(CT) 16.3 mL/dL (15.0-23.0); PO2(98.6) 124 mmHg (60-100); SAMPLE BLOOD; SAO2 98.2 % (95.0-100.0); THB 11.8 g/dL (11.5-17.4); pH(98.6) 7.41 (7.35-7.45)
[2018-11-17 03:58] LABS: MODALITY CANNULA; PCO2(98.6) 62 mmHg (35-45)
[2018-11-17 07:36] LABS: AGAP 6; BUN 19 mg/dL (8-22); CALCIUM 9.1 mg/dL (8.8-10.2); CHLORIDE 100 mmol/L (98-107); COSMO 287; CREATININE 0.7 mg/dL (0.5-0.9); ESTIMATED GFR > 60; GLUCOSE 86 mg/dL (70-104); POTASSIUM 4.3 mmol/L (3.5-5.1); SODIUM 143 mmol/L (136-145); TCO2 37 mmol/L (25-35)
[2018-11-17 07:44] VITALS: BP 119/59
[2018-11-17] MEDS: ALLEGRA-D 12 HOUR PO SCH (08:52)
[2018-11-17] MEDS: ASTELIN NASAL SPRAY NAS SCH (08:53)
[2018-11-17] MEDS: SOLU-MEDROL IV SCH (08:53)
[2018-11-17] MEDS: CALTRATE 600 + D PO SCH (08:53)
--- NOTE | 2018-11-18 02:47 | DISCHARGE SUMMARY ---
ADMISSION DATE: 11/14/2018 DISCHARGE DATE: 11/17/2018 DISCHARGE DIAGNOSES: 1. Right middle lobe pneumonia. 2. Chronic obstructive pulmonary disease exacerbation, resolved. 3. History of breast cancer in 2018. 4. Chronic hypoxemic respiratory failure on home oxygen mostly during the night and as-needed, also hypercarbic respiratory failure. PROCEDURES PERFORMED: 1. Chest x-ray dated 11/14/2018; impression COPD and right middle lobe pneumonia. 2. Chest x-ray dated 11/16/2018; impression emphysema, no infiltrates. HOSPITAL COURSE: The patient is a 67-year-old female with a past medical history of COPD and breast cancer and hypoxemic respiratory failure, presented to the emergency department with chief complaint of shortness of breath for 24 hours. She was admitted on 11/14/2018. As per the patient the day of admission the shortness of breath increased and she was getting worse. She does have home O2 mostly during the night and as needed, but at this time it did not help for the symptoms. X-ray done the day of admission showed COPD and right middle lobe pneumonia. She was admitted and we treated with antibiotics Rocephin and azithromycin. Also we will continued with breathing treatment, pulmonary toilet and oxygen supplementation. The patient was getting better on a daily basis. At some point we noticed that she was a little bit hypernatremic, but likely that was secondary to decreased water intake, that is resolved. She is feeling much better today, the coughing and the secretion production is minimal. We will send this patient home with a strict follow up by her primary care doctor and brush cleaner. She will be discharged with antibiotics, steroids, breathing treatment and oxygen at home. At the moment of discharge this patient was in a stable medical condition, tolerating p.o. and ambulating. DISCHARGE PHYSICAL EXAMINATION: Vital Signs: Temperature 97.9 degrees, pulse 88, respiratory rate 18, blood pressure 118/59, oxygen saturation 98% on 2 L of nasal cannula. HEENT: Head is normocephalic and atraumatic. PERRLA. Neck: Supple. No JVD. No masses. Central trachea. Chest: Decreased breath sounds globally with prolonged expiratory phase and some crepitus on the right side. Abdomen: Soft, nontender, nondistended. No hepatosplenomegaly. Extremities: No edema, no clubbing, no cyanosis. Neurological: The patient is alert and oriented x3. No focal deficits. LABORATORY DATA: PH 7.41, pCO2 62. Sodium 143, potassium 4.3, chloride 100, bicarbonate 37, BUN 19, creatinine 0.7, glucose 86, calcium 9.1. DISCHARGE MEDICATIONS: 1. DuoNeb 3 mL q.6 hours as needed for shortness of breath. 2. Astelin nasal spray 2 spray nasally twice a day. 3. Azithromycin 200 mg p.o. every 24 hours. 4. Viactiv soft chews 2 tablets p.o. daily. 5. Cefdinir 300 mg p.o. b.i.d. 6. Ekaterina-D 12 hour 1 tablet p.o. daily. 7. Trelegy Ellipta 100/62.5/25 one inhaler daily. 8. Femara 2.5 mg p.o. at bedtime. 9. Medrol Dosepak 4 mg p.o. as directed. 10. Effexor XR 75 mg p.o. at bedtime. FOLLOW-UP: By Pulmonary Department, Dr. Mi in 1-2 weeks, she will need to call for the appointment, she is stable. TIME SPENT: For discharging this patient is 35 minutes. cc: Jonathan Del Cid MD
== END 2018-11-17 11:00 | disposition home or self-care (01) | DRG 190 ==
LOC: ED 11:17 → 3N 15:26
PROVIDERS: ATTEND Internal Medicine
CPT/HCPCS: 71010; 71020; 71045; 71046; 80048; 80053; 82805; 83880; 84484; 85025; 85610; 87040; 87070; 87205; 87275; 87276; 87804; 89220; 94640; 94761; 94799; 96365; 96366; 96367; 96375; 99285; A9270; J0456; J0696; J2920; J2930